=== PATIENT | female | born 1980 | race Caucasian/White ===

== ENCOUNTER 2024-12-19 15:36 | Emergency (ER) | payer OTHER ==
[~2024-12-19] VITALS: Ht 157.5 cm; Wt 59.8 kg
[2024-12-19 15:39] VITALS: BP 139/91; TEMP 98.6; O2SAT 99
[2024-12-19] MEDS: LIDOCAINE 1% MDV 20 ML VIAL IM ONE (17:41)
[2024-12-19] MEDS: ACETAMINOPHEN 500 MG TAB PO ONE (17:42)
[2024-12-19] MEDS: KETOROLAC 60 MG/2 ML VIAL IM ONE (17:43)
[2024-12-19] MEDS: TETANUS/DIPHTH/ACEL. PERTUSSIS 0.5 ML SYR IM.IMMUN ONE (17:44)
[2024-12-19] MEDS: NEOSPORIN TOP OINT 15 GM TOP ONE (19:21)
== END 2024-12-19 19:23 | disposition home or self-care (01) ==
LOC: M ED 15:36
DX: S61.211A Laceration without foreign body of left index finger without damage to nail, initial encounter (principal); W26.8XXA Contact with other sharp object(s), not elsewhere classified, initial encounter; F32.A Depression, unspecified; Y92.000 Kitchen of unspecified non-institutional (private) residence as the place of occurrence of the external cause; Y93.89 Activity, other specified; Y99.9 Unspecified external cause status; Z23 Encounter for immunization
CPT/HCPCS: 12002; 73140; 90471; 90715; 96372; 99284; J1885